=== PATIENT | male | born 2000 | race Caucasian/White ===

== ENCOUNTER → 2022-10-31 | Outpatient (CLI) | payer OTHER | LOC: M PLAIMG 12:20 | PROVIDERS: ATTEND Physician Assistant | DX: K62.5 Hemorrhage of anus and rectum (principal); R10.9 Unspecified abdominal pain ==

== ENCOUNTER 2023-07-08 09:26 | Day surgery (SDC) | payer OTHER ==
[~2023-07-08] VITALS: Ht 185.4 cm; Wt 92.1 kg
[~2023-07-08 09:26] MED LIST: HYDR25SU61 PR
[2023-07-08] MEDS: NS 1,000 ML IV ONE (09:41)
[2023-07-08] MEDS ORDERED: propofoL 200 MG/20 ML VIAL As Ordered ONE (10:00)
[2023-07-08] MEDS ORDERED: LIDOCAINE 2% 100MG/5ML SDV (FOR ANES.) As Ordered ONE (10:00)
[2023-07-08 10:19] VITALS: TEMP 98
[2023-07-08 10:35] VITALS: BP 132/76; O2SAT 98
== END 2023-07-08 11:13 | disposition home or self-care (01) ==
LOC: M OPP 09:26
PROVIDERS: ATTEND Internal Medicine Gastroenterology
DX: K63.5 Polyp of colon (principal); K92.1 Melena; G47.30 Sleep apnea, unspecified; Z87.891 Personal history of nicotine dependence